=== PATIENT | female | born 1995 | race Caucasian/White ===

== ENCOUNTER 2017-10-25 14:53 | Emergency (ER) | payer BC, OTHER ==
[~2017-10-25] VITALS: Ht 167.6 cm; Wt 56.0 kg
[~2017-10-25 14:53] MED LIST: IBUP800T23 PO
[2017-10-25 14:56] VITALS: BP 130/59; PULSE 84; RESP 16; TEMP 98.4; O2SAT 100
[2017-10-25] MEDS ORDERED: IBUP1TAB7 PO (16:39)
--- NOTE | 2017-10-25 16:39 | PD ---
HPI Chief Complaint: Pain: Acute or Chronic Time Seen by Provider: 15:56 Travel History International Travel<30 days: No Contact w/Intl Traveler<30days: No Traveled to known affect area: No History of Present Illness HPI This is a 21-year-old female here with right rib pain 2 hours. Denies injury or trauma. No chest pain. No shortness of breath. Pain is worse with deep inspiration and palpation of the ribs. She reports that she carries an 85 pound ladder at work and did extensive lifting yesterday. Symptom severity is mild to moderate. No aggravating or alleviating factors. PFSH Past Medical History ADD: Yes Arthritis: Yes Diminished Hearing: No Fibromyalgia: Yes Gastrointestinal Disorders: Yes (crohnes, IBS, HYPERMOBILITY DISORDER) Immunizations Current: Yes Migraines: Yes ?: Unknown Social History Alcohol Use: Yes (OCCAS) Tobacco Use: Yes (1 PPD) Substance Use: No Allergies-Medications (Allergen,Severity, Reaction): Coded Allergies: amphetamine (Unverified Allergy, Severe, Hallucinations, 10/25/17) dextroamphetamine (Unverified Allergy, Severe, Hallucinations, 10/25/17) penicillin G (Unverified Allergy, Severe, Rash, 10/25/17) cetirizine (Unverified Adverse Reaction, Severe, HYPER ACTIVITY, 10/25/17) melon (Unverified Adverse Reaction, Severe, VOMITING AND WT LOSS, 10/25/17) Uncoded Allergies: MOLE SKIN (Allergy, Intermediate, RASH, 10/15/09) Reported Meds & Prescriptions Reported Meds & Active Scripts Active Reported Ibuprofen 800 Mg Tab 800 Mg PO Q6HR PRN Review of Systems Except as stated in HPI: all other systems reviewed are Neg General / Constitutional: No: Fever Eyes: No: Visual changes HENT: No: Headaches Cardiovascular: No: Chest Pain or Discomfort Respiratory: No: Shortness of Breath Gastrointestinal: No: Abdominal Pain Genitourinary: No: Dysuria Skin: No Rash Neurologic: No: Weakness Physical Exam Narrative GENERAL: Alert and well-appearing 21-year-old female. Patient resting comfortably on stretcher. No distress. SKIN: Warm and dry. HEAD: Normocephalic. EYES: No injection or drainage. NECK: Supple CARDIOVASCULAR: Regular rate and rhythm. No murmur appreciated RESPIRATORY: Breath sounds equal bilaterally. No accessory muscle use. Even and equal chest rise. +TTP right anterior/lateral lower ribs. No crepitus GASTROINTESTINAL: Abdomen soft, non-tender, nondistended. No rebound or guarding. MUSCULOSKELETAL: No cyanosis, or edema. BACK: Nontender without obvious deformity. No CVA tenderness. Data Data Last Documented VS Vital Signs Date Time Temp Pulse Resp B/P (MAP) Pulse Ox O2 Delivery O2 Flow Rate FiO2 10/25/17 16:35 16 10/25/17 14:56 98.4 84 130/59 (82) 100 Orders Orders Ribs, Uni (W/Exp Cxr-Min 3vw) (10/25/17 ) Ed Urine Pregnancytest Poc (10/25/17 16:40) MDM Medical Decision Making Medical Screen Exam Complete: Yes Emergency Medical Condition: Yes Differential Diagnosis Rib fracture, pneumothorax, contusion Narrative Course 21 year old female here with nontraumatic right rib pain. No respiratory distress. Patient is well-appearing and lying comfortably on stretcher laughing and interacting with family members. The pain is reproducible to palpation to the anterior and lateral ribs. Her abdomen is soft and nontender. Chest x-ray: No pneumothorax or rib fracture Findings discussed with patient and family. I offered a shot of Toradol and she declined. Believe this is musculoskeletal as the pain is reproducible. He was instructed to avoid heavy lifting or strenuous activity. Strict return precautions were discussed. She verbalizes understanding and agrees to plan. Diagnosis Primary Impression: Rib pain Referrals: Primary Care Physician Departure Forms: Tests/Procedures, Work Release Enter return to work date: Oct 26, 2017 Special Instructions: No heavy lifting or strenuous activity for 3 days. Additional Instructions: Tylenol and ibuprofen as needed for pain. Avoid heavy lifting or strenuous activity. Return to the emergency department he developed new or worsening symptoms Disposition: 01 DISCHARGE HOME Condition: Stable Kaylee Dewitt Oct 25, 2017 16:39
--- NOTE | 2017-10-25 17:09 | RADRPT ---
EXAM DATE/TIME: 10/25/2017 16:44 [facility] COMPARISON: No previous studies available for comparison. INDICATIONS : Sudden onset of right lower anterior chest pain today, no known injury MEDICAL HISTORY : None. SURGICAL HISTORY : None. ENCOUNTER: Initial ACUITY: 1 day PAIN SCORE: 8/10 LOCATION: Right lower chest FINDINGS: Multiple views of the right ribs demonstrate no rib fracture or acute abnormality. There is no pneumo thorax. Surrounding structures demonstrate no acute finding. CONCLUSION: No rib fracture or acute abnormality is identified. Daniel Quiñones MD on October 25, 2017 at 17:05 Board Certified Radiologist. This report was verified electronically.
== END 2017-10-25 17:47 | disposition home or self-care (01) ==
LOC: PHEFT 14:53
DX: R07.81 Pleurodynia (principal); F98.8 Other specified behavioral and emotional disorders with onset usually occurring in childhood and adolescence; M19.90 Unspecified osteoarthritis, unspecified site; M79.7 Fibromyalgia; F17.200 Nicotine dependence, unspecified, uncomplicated; Z87.19 Personal history of other diseases of the digestive system; Z88.0 Allergy status to penicillin; Z88.8 Allergy status to other drugs, medicaments and biological substances
CPT/HCPCS: 71101; 84703; 99283

== ENCOUNTER → 2018-03-03 | Outpatient (CLI) | payer MEDICAID ==
[~2018-03-03] MED LIST changes: +IBUP1TAB7 PO; -IBUP800T23 PO
== END ==
LOC: HPND 08:11
PROVIDERS: ATTEND Obstetrics & Gynecology
DX: O35.2XX0 Maternal care for (suspected) hereditary disease in fetus, not applicable or unspecified (principal); Q79.6 Ehlers-Danlos syndromes; D84.1 Defects in the complement system; O43.892 Other placental disorders, second trimester; O44.42 Low lying placenta NOS or without hemorrhage, second trimester; Z82.79 Family history of other congenital malformations, deformations and chromosomal abnormalities
CPT/HCPCS: 76811; 76817